=== PATIENT | female | born 1960 | race Caucasian/White ===

== ENCOUNTER 2017-04-13 14:41 | Emergency (ER) | payer BC ==
[2017-04-13 14:42] VITALS: BP 179/104; PULSE 114; RESP 16; TEMP 98.2; O2SAT 99
--- NOTE | 2017-04-13 14:55 | PD ---
Physical Exam Time Seen by Provider: 14:52 Narrative 57 y/o female here for evaluation of intermittent pruritic rash since june 2016. Here today because the rash has spread to her face. 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 Vital signs reviewed. Seen at triage desk. Awaiting bed placement. Data Data Last Documented VS Vital Signs Date Time Temp Pulse Resp B/P Pulse Ox O2 Delivery O2 Flow Rate FiO2 04/13/17 14:42 98.2 114 16 179/104 99 MDM Medical Record Reviewed: Yes Supervised Visit with DMITRY: Tc Diana Apr 13, 2017 14:55
[2017-04-13 14:58] VITALS: BP 182/90; PULSE 102; RESP 16; O2SAT 100
--- NOTE | 2017-04-13 15:20 | PD ---
HPI Chief Complaint: Skin Problem Time Seen by Provider: 15:20 Travel History International Travel<30 days: No Contact w/Intl Traveler<30days: No Traveled to known affect area: No History of Present Illness HPI 57-year-old female presents the emergency Department with rash to the face, forearms and chest. This happened in the past mainly to the chest and forearms but not the face. Patient has been seen by an leaf tier in the past and tested for multiple allergies. No specific exposure history currently. She denies fever, chills, or other symptoms. She states dry flaky rash which becomes raw and sensitive. Currently it's worse on the face around the eyes. She denies any other symptoms. She has been taking Benadryl and using over-the- counter moisturizing lotions without improvement. Patient does state recent stressors which may have triggered her current outbreak. She states the rash has been present for almost a week. He is allergic to quinolones. PFSH Social History Alcohol Use: Yes Tobacco Use: No Substance Use: No Allergies-Medications (Allergen,Severity, Reaction): Coded Allergies: Quinolones (Verified Allergy, Unknown, 04/13/17) Reported Meds & Prescriptions Reported Meds & Active Scripts Active Prednisone (48) 10 mg tab Dose Pack (Prednisone) 10 Mg Dspk 10 Mg PO DIRECTED Ranitidine (Ranitidine HCl) 150 Mg Tab 150 Mg PO BID Maxitrol Opth Oint (Kugmjqla-Lwhazuegy-Mpmxkoxsrrhdo Opth Oint) 3.5 Gm Oint 1 Applic EACH EYE QID Review of Systems Except as stated in HPI: all other systems reviewed are Neg General / Constitutional: No: Fever Eyes: No: Visual changes HENT: No: Headaches Cardiovascular: No: Chest Pain or Discomfort Respiratory: No: Shortness of Breath Gastrointestinal: No: Abdominal Pain Genitourinary: No: Dysuria Musculoskeletal: No: Pain Skin: Positive Rash, Positive Dryness Neurologic: No: Weakness Psychiatric: No: Depression Endocrine: No: Polydipsia Hematologic/Lymphatic: No: Easy Bruising Physical Exam Narrative GENERAL: Patient appears in mild distress. SKIN: Warm and dry. Normal color. Normal turgor. Patient has well demarcated flaky erythematous dry indurated rash to the forehead, periorbital regions, and cheeks, as well as a mild area on the anterior chest, and both forearms. HEAD: Atraumatic. Normocephalic. EYES: Pupils equal and round. No scleral icterus. No injection or drainage. ENT: No nasal bleeding or discharge. Mucous membranes pink and moist. Pharynx is clear. Airway is patent. NECK: Trachea midline. Supple nontender. No lymphadenopathy. CARDIOVASCULAR: Regular rate and rhythm. RESPIRATORY: No accessory muscle use. Clear to auscultation. Breath sounds equal bilaterally. GASTROINTESTINAL: Abdomen soft, non-tender, nondistended. Hepatic and splenic margins not palpable. MUSCULOSKELETAL: Extremities without clubbing, cyanosis, or edema. No obvious deformities. NEUROLOGICAL: Awake and alert. No obvious cranial nerve deficits. Motor grossly within normal limits. Five out of 5 muscle strength in the arms and legs. Normal speech. PSYCHIATRIC: Appropriate mood and affect; insight and judgment normal. Data Data Last Documented VS Vital Signs Date Time Temp Pulse Resp B/P Pulse Ox O2 Delivery O2 Flow Rate FiO2 04/13/17 14:58 102 16 182/90 100 04/13/17 14:42 98.2 Orders Prednisone (Deltasone) (04/13/17 15:30) [facility] Medical Decision Making Medical Screen Exam Complete: Yes Emergency Medical Condition: Yes Differential Diagnosis Allergic dermatitis. Eczematous dermatitis. Allergic reaction. Narrative Course Patient is medically stable at time of exam. Patient is given 60 mg prednisone by mouth. Patient will be continued on prednisone taper as directed. Patient is started on Zyrtec 10 mg daily. Patient is put on Zantac 150 mg twice a day. Patient is given topical Cortisporin Ophthalmic ointment to be used on the face , and covered with Vaseline. Patient is to take Benadryl 25 mg every 6 hours when necessary. Patient should follow-up with her primary care physician or leaf tier as discussed. Patient can follow up if symptoms worsen as discussed. Diagnosis Primary Impression: Eczema of face Referrals: Primary Care Physician Patient Instructions: Eczema (ED), General Instructions Additional Instructions: Patient is medically stable at time of exam. Patient is given 60 mg prednisone by mouth. Patient will be continued on prednisone taper as directed. Patient is started on Zyrtec 10 mg daily. Patient is put on Zantac 150 mg twice a day. Patient is given topical Cortisporin Ophthalmic ointment to be used on the face , and covered with Vaseline. Patient is to take Benadryl 25 mg every 6 hours when necessary. Patient should follow-up with her primary care physician or leaf tier as discussed. Patient can follow up if symptoms worsen as discussed. Med/Other Pt SpecificInfo: Prescription(s) given Scripts Prednisone (48) 10 mg tab Dose Pack 10 Mg Dspk10 Mg PO DIRECTED #1 DSPK Ref 0 Prov:Stanley Blount MD 04/13/17 Ranitidine 150 Mg [id number] Mg PO BID #60 TAB Ref 0 Prov:Stanley Blount MD 04/13/17 Rwtjxnrr-Rxclzkqfk-Npxhymyvpdwjg Opth Oint (Maxitrol Opth Oint)3.5 Gm Oint1 Applic EACH EYE QID #3.5 GM Ref 2 Prov:Stanley Blount MD 04/13/17 Disposition: 01 DISCHARGE HOME Condition: Stable Cristian Beth Apr 13, 2017 15:20
[2017-04-13] MEDS ORDERED: predniSONE 20 MG TAB PO ONE (15:30)
[2017-04-13] MEDS ORDERED: PRED10PA2 PO (15:34)
[2017-04-13] MEDS ORDERED: MAXI0.1O EACH EYE (15:34)
[2017-04-13] MEDS ORDERED: RANI150T PO (15:34)
== END 2017-04-13 15:44 | disposition home or self-care (01) ==
LOC: NEPK 14:41
DX: L30.9 Dermatitis, unspecified (principal)
CPT/HCPCS: 99284; J7512